=== PATIENT | female | born 1960 | race African-American/Black ===

== ENCOUNTER 2021-03-24 20:55 | Inpatient (IN) | payer OTHER ==
[~2021-03-24] VITALS: Ht 157.5 cm; Wt 88.5 kg
[2021-03-24] MEDS ORDERED: SODIUM CHLORIDE 0.9% 500 ML IV ONE (21:30)
[2021-03-24 21:53] LABS: BASOPHILS % 0.4 % (0.0-2.0); EOSINOPHILS % 1.9 % (0.0-5.0); HEMATOCRIT. 39.5 % (36.0-48.0); HEMOGLOBIN. 13.4 g/dL (12.0-16.0); LYMPHOCYTES % 25.9 % (20.0-50.0); MEAN CORPUSCULAR HEMOGLOBIN 27.6 pg (28.0-32.0); MEAN CORPUSCULAR VOLUME 81.2 fL (81.0-99.0); MEAN PLATELET VOLUME 8.1 fl (7.4-10.4); MONOCYTES % 13.1 % (2.0-8.0); NEUTROPHILS % 58.7 % (40.0-76.0); PLATELET 238 x1000/uL (130-400); RED BLOOD CELL COUNT 4.87 mill/uL (4.2-5.4); RED CELL DISTRIBUTION WIDTH 14.8 % (11.6-14.6)
[2021-03-24 21:59] LABS: CHLORIDE 105 mEq/L (98-107)
[2021-03-24 22:01] LABS: PROTHROMBIN TIME 10.9 sec (9.6-11.0)
[2021-03-24 22:04] LABS: HCG SCREEN NEGATIVE
[2021-03-25] MEDS ORDERED: SODIUM CHLORIDE 0.9% 1,000 ML IV SCH (13:15)
[2021-03-25 14:30] VITALS: BP 128/76
== END 2021-03-25 14:40 | disposition home or self-care (01) | DRG 314 ==
LOC: ER 20:55 → MICUSO 03-25 10:37
PROVIDERS: ADMIT Internal Medicine; ATTEND Internal Medicine
DX: I95.9 Hypotension, unspecified (principal); N17.0 Acute kidney failure with tubular necrosis; E44.0 Moderate protein-calorie malnutrition; E87.1 Hypo-osmolality and hyponatremia; I50.22 Chronic systolic (congestive) heart failure; I42.9 Cardiomyopathy, unspecified; J44.9 Chronic obstructive pulmonary disease, unspecified; F17.210 Nicotine dependence, cigarettes, uncomplicated; I11.0 Hypertensive heart disease with heart failure; Z68.35 Body mass index [BMI] 35.0-35.9, adult
CPT/HCPCS: 36415; 71045; 80053; 83605; 83880; 84484; 84703; 85025; 99285; J7040